=== PATIENT | female | born 1950 ===

== ENCOUNTER 2024-06-09 09:10 | Outpatient (AMB) | payer MEDICARE, OTHER, SELFPAY ==
--- NOTE | 2024-06-09 09:11 | A.OFFVIS_ITS ---
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 She reports her pain started 3 years ago in March of 2021 when she went outside to shovel her snow. She is unable to sit without pain for significant period of time. She was under care of multiple providers where she received multiple injections for the pain control. None of those injections were successful to alleviate her pain. She reports that she has to consume her foot while laying down. She is unable to sit over the table. She can do activities of daily living, she can take care of herself but she can not function normally. In terms of tissue damage he reports her pain as hot burning, tingling, stinging, spreading, radiating, piercing, tight, squeezing, tearing sensation. She is currently taking gabapentin and cyclobenzaprine for this pain. She attempted lorazepam as needed for her pain control. She is not on any opioids. She had extensive courses of physical therapy multiple times with very minimal pain improvement. She attempted chiropractic manipulations in 2021 and 2023 without pain improvement. She tried acupuncture in 2021 and 2022 without pain improvement. She had an MRI of the lumbar spine results of which dictated as below. She received multiple injection some of them are procedures directed to the ischial bursa. She denies numbness in the perirectal ben vaginal area. She only reports radiation of the pain to the anal area however it is not typical pain in my opinion to establish diagnosis of pudendal nerve pathology. Her past medical history significant for depression and anxiety, she reports urinary incontinence, she admits history of ovarian cysts. Her past surgical history significant for removal of the ovarian cyst and meniscus repair of the left knee. She denies smoking cigarettes denies drinking alcohol, she drinks 1 cup of coffee a day, denies recreational drugs. [facility] Surgical History (Updated 06/09/24 @ 09:23 by Sanjuanita Chase CMA) H/O medial meniscus repair of left knee (2011) History of removal of ovarian cyst (1978) Family History (Updated 06/09/24 @ 09:22 by Sanjuanita Chase CMA) Mother Diabetes Paternal Grandfather Diabetes Paternal Grandmother Diabetes Maternal Grandfather Diabetes Maternal Grandmother Diabetes Social History (Updated 06/09/24 @ 09:23 by Sanjuanita Chase CMA) Household Members: None Housing: Apartment Alcohol intake: never Patient Tobacco Use Status: Never used Tobacco Use of substances other than those prescribed or required for medical reasons: No service: No Current occupational status: retired Cognitive needs: No Hearing needs: No Vision needs: Yes Review of Systems Const Reports no additional complaints Eyes Reports no additional complaints ENT Reports Normal hearing present Card Reports no additional complaints Resp Reports no additional complaints GI Reports no additional complaints Reports as per HPI Musc Reports as per HPI Neuro Reports no additional complaints, Reports Normal hearing present, Denies Abnormal speech present and Denies Sensory deficit (Neuro) Psych Reports as per HPI Physical Exam Vital Signs: Last Vital Signs Pulse 84 06/09/24 09:15 BP 155/80 H 06/09/24 09:15 Pulse Ox 99 06/09/24 09:15 Oxygen Delivery Method Room Air 06/09/24 09:15 BMI result Body Mass Index 22.7 Const General: no acute distress, alert, awake, Physically active and in distress (Mild distress when sitting use special cushion to sit.) mild Orientation/consciousness: patient oriented x3 Limitations: physical limitations Eyes General: appearance normal, both eyes and all related structures Pupils: Equal, round and reactive pupils present EOM: EOMs intact bilaterally Neck Neck: Yes full ROM Chest Chest palpation & inspection: normal inspection of the chest Resp Effort & Inspection: normal respiratory effort, able to speak in complete sentences, normal respiratory pattern, no audible wheezes and no cough Cardio Jugular venous distension: no JVD GI Inspection: Yes normal to inspection Back/Spine/Pelvis Other: There is tenderness on palpation in the projection of the ischial bursa on the left. There is tenderness on palpation in the projection of the left sacroiliac joint. Owen test is positive on the left. Gaenslen test is positive on the left. Thigh thrust test is positive on the left. There is no tenderness on palpation in paraspinal spinal region of the lumbar spine. There is no tenderness on palpation in projection of the sacral bone or coccygeal spine. Flexing forward aggravates her pain. Flexing backwards does not affects her pain. Valsalva maneuver does not increase her pain. Neuro General: patient oriented x3 and gait normal Cranial nerves: Yes CN's II-XII intact bilaterally, Yes Equal, round and reactive pupils present, Yes Normal hearing present and Yes Ability to bilaterally elevate shoulders present Speech: No Abnormal speech present Gait exam (Neuro): Normal gait present Motor exam (neuro): 5/5 motor strength present throughout Sensory Exam: No Sensory deficit (Neuro) Extrem General: No pedal edema Psych Speech and movement: Normal speech and movement present Affect: normal affect Attitude: cooperative Thought process: Normal thought process present Thought content: Normal thought content present Insight: Good insight present (Psych) Judgement: Good judgement present (Psych) Results Reviewed Results Reviewed: MRI pelvis without contrast 06/12/2022. Bladder is decompressed and otherwise unremarkable. There is mild pelvic floor laxity with low lying bladder. Unremarkable anteverted uterus endometrial cavity grossly unremarkable. Unlikely adnexal mass. Colonic diverticulosis in the sigmoid colon. No colonic wall thickening or pericolonic inflammatory changes to suggest acute diverticulitis. On T2 weighted images there is some subtle nonspecific soft tissue edema seen within the left labia extending to the left perineal region. No collection or abscess. Normal symmetric muscle size signal with no focal muscular asymmetry. Mild degenerative changes in the left hip and acetabulum. No bulky inguinal or pelvic side wall adenopathy. MRI of the lumbar spine 09/20/2021. Transitional vertebral bodies present which may represent partial sacralized lumbar vertebral body which will be labeled L5 for the examination. Leftward curvature of the lumbar spine is present. No significant subluxation. The lumbar vertebral bodies are normal in height. No spondylosis. Rudimentary L5- S1 disc. L4-5 disc is severely diminished in height. The remaining of lumbar discs are moderately diminished in height. Marginal osteophytes and facet arthrosis are present in multiple levels. Vacuum disc phenomenon at L4-5. Small nodes also extend through the superior endplate of L5. Conus terminates at L1. Fatty atrophy of the posterior paraspinal musculature. Visualized retroperitoneal structures are unremarkable. T12-L1 mild broad-based posterior disc bulge asymmetric to the left with mild left subarticular recess narrowing. Nerve root impingement. L1-L2: Mild concentric disc bulge and facet arthrosis. No significant central canal narrowing. No significant foraminal narrowing. L2-L3: Concentric disc osteophyte complex. Facet arthrosis. Mild ligamentum flavum infolding. Minimal central canal narrowing. Mild right and minimal left foraminal narrowing. L3-L4: Facet arthrosis and posterior disc osteophyte complex. No significant central canal narrowing. Mild right and minimal left foraminal narrowing. L4-5: Concentric disc osteophyte complex. No significant central canal narrowing. Mild bilateral foraminal narrowing. L5-S1. Transitional level. No central canal stenosis or significant foraminal narrowing. Nerve conduction study: Extensive electrodiagnostic nerve conduction and nerve electrode examination of the left lower limb with related lumbosacral paraspinal muscles and additional studies of the right lower limb do not show any definitive abnormalities. In particular there is no evidence of left lumbosacral motor radiculopathy affecting L5-S1 nerve roots segmental levels or generalized large fiber sensory motor neuropathy affecting lower limbs. Mild chronic denervation changes seen in the left tibialis posterior muscle which in isolation of unclear significant and no sufficient enough for definitive electrode diagnose this. Assessment & Plan Assessment & Plan (1) Sacroiliitis: Code(s): M46.1 - Sacroiliitis, not elsewhere classified Category: Medical (2) Chronic left sacroiliac joint pain: Code(s): M53.3 - Sacrococcygeal disorders, not elsewhere classified; G89.29 - Other chronic pain Category: Medical (3) Chronic pain syndrome: Code(s): G89.4 - Chronic pain syndrome Category: Medical (4) Disc degeneration, lumbar: Code(s): M51.369 - Other intervertebral disc degeneration, lumbar region without mention of lumbar back pain or lower extremity pain Category: Medical Plan In the presence of the positive signs for sacroiliitis sacroiliac joint pain on the right I think it is prudent to perform 1st diagnostic left sacroiliac joint injection on this patient. As of the idea of pudendal nerve pathology I think personally it should not be considered as the pertinent diagnosis for the patient because: 1. The pudendal nerve innervated muscles such as bulbous spinouss, ischiocavernouse muscle, superficial transverse perineal muscle, are not demonstrated on the MRI of the pelvis is atrophied muscles. 2. Patient reports her pain start at after snow shoveling. This is not the activity which usually lead to pudendal pathology. Riding bicycle, prolonged sitting, pelvic trauma could lead to pudendal nerve pathology but not the snow shoveling. In fact twisting torso with no shoveling can lead to sacroiliac pathology. 3. The EMG dictated as above did not demonstrate any sacral nurse pathology or plexus pathology which would be evident with pudendal nerve neuropathy. If the patient will not receive good pain relief from sacroiliac joint injection I would like to try [place] scientific spinal cord stimulator with electrodes positioned either retrograde in the sacral bone or anterior grade in the posterior lumbar epidural space. Brochures of [place] scientific spinal cord stimulator and brochures of [facility] were given to the patient in preparation for the future possible neuromodulation. Patient Instructions: I here by testify that I spent 48 minutes in conversation with this patient as well as planning her care evaluating her diagnostic studies and organizing this note. Coding Level of Care Code New Pt Level 4 (55074) Diagnoses Sacroiliitis M46.1 Chronic left sacroiliac joint pain M53.3; G89.29 Chronic pain syndrome G89.4 Disc degeneration, lumbar M51.369
[2024-06-09 09:15] VITALS: BP 155/80; PULSE 84; O2SAT 99; BMI 22.7
== END 2024-06-09 10:16 | disposition home or self-care (01) ==
LOC: HO.PMC 09:10
PROVIDERS: PCP Neuromusculoskeletal Medicine & OMM; Referring Provider Neuromusculoskeletal Medicine & OMM; Visit Provider Anesthesiology
DX: M46.1 Sacroiliitis, not elsewhere classified (principal); M53.3 Sacrococcygeal disorders, not elsewhere classified; G89.29 Other chronic pain; G89.4 Chronic pain syndrome; M51.369 Other intervertebral disc degeneration, lumbar region without mention of lumbar back pain or lower extremity pain
CPT/HCPCS: 99204

== ENCOUNTER → 2024-06-09 09:10 | Outpatient (BNVA) | payer MEDICARE, OTHER, SELFPAY | PROVIDERS: PCP Neuromusculoskeletal Medicine & OMM; Referring Provider Neuromusculoskeletal Medicine & OMM; Visit Provider Anesthesiology | DX: M46.1 Sacroiliitis, not elsewhere classified (principal); M53.3 Sacrococcygeal disorders, not elsewhere classified; G89.4 Chronic pain syndrome; M51.369 Other intervertebral disc degeneration, lumbar region without mention of lumbar back pain or lower extremity pain | CPT/HCPCS: 99202 ==